=== PATIENT | female | born 1980 | race Caucasian/White ===

== ENCOUNTER 2023-05-30 22:00 | Emergency (ER) | payer BC, SELFPAY ==
[2023-05-30 22:19] VITALS: BP 133/84; PULSE 102; RESP 20; TEMP 37.4; O2SAT 98
[2023-05-30 22:22] VITALS: BP 133/84; PULSE 101; RESP 18; O2SAT 100
--- NOTE | 2023-05-30 22:24 | ED.GENADUL_ITS ---
HPI General Stated Complaint: SOB Mode of arrival: ambulatory. TY: 4 Date/Time Provider Initiated Documentation: 05/30/23 22:01. Limitations to Documentation: no limitations. Information obtained by: patient, RN notes reviewed and old records reviewed. HPI Narrative: 43 year old female presents to the ED with cc of sore throat, fever, HUTTON and cough x 3 days. She was seen by PCP today and had negative Flu, Covid and strep swabs. She reports feeling worse. She does endorse vaping, denies illicit drugs or alcohol. Lungs are clear to auscultation bilaterally, she is speaking in full sentences. On exam she does have 2+ tonsils bilaterally with erythema and exudate. Related Data Home Medications Medication Instructions Recorded Confirmed albuterol 90 mcg/actuation aerosol mcg inhalation Q6H PRN 05/03/22 06/06/22 inhaler coenzyme Q10 10 mg capsule 20 mg PO DAILY 05/03/22 06/06/22 cyanocobalamin (B12)-cobamamide tab sublingual 05/03/22 06/06/22 5,000 mcg-100 mcg sublingual tablet esomeprazole magnesium 20 mg 20 mg PO DAILY 05/03/22 06/06/22 tablet,delayed release (Nexium 24HR) rosuvastatin 20 mg tablet 20 mg PO DAILY 05/03/22 06/06/22 amoxicillin 875 mg-potassium 1 tab PO BID URI 10 days #20 tabs 05/30/23 clavulanate 125 mg tablet Previous Rx's Medication Instructions Recorded amoxicillin 875 mg-potassium 1 tab PO BID URI 10 days #20 tabs 05/30/23 clavulanate 125 mg tablet Allergies Allergy/AdvReac Type Severity Reaction Status Date / Time latex Allergy Skin Rash Verified 06/06/22 09:53 Review of Systems All systems reviewed & are unremarkable except as noted in HPI and below Constitutional Constitutional: Reports fever(s), Reports headache(s) and Reports night sweats ENT Ears, Nose, Mouth, and Throat: Reports as per HPI, Reports dizziness, Reports otalgia, Reports headache(s) and Reports sore throat Cardiovascular Cardiovascular: Denies dyspnea Respiratory Respiratory: Reports cough and Denies dyspnea Gastrointestinal Gastrointestinal: Denies diarrhea, Denies nausea and Denies vomiting Neurologic Neurologic: Reports dizziness and Reports headache(s) [facility] All Active Problems (Updated 05/30/23 @ 23:15 by Afshan Mosquera NP) URI (upper respiratory infection) (Acute) Hyperlipidemia, mixed (Acute) Referred otalgia of both ears (Acute) Chronic pharyngitis (Acute) Postnasal drip (Acute) Medical History Herpes simplex Sacroiliac joint pain Degenerative disc disease, lumbar Spondylosis of lumbar spine Family history of premature coronary artery disease B12 deficiency Irritable bowel syndrome with predominant constipation Acid reflux Asthma, intermittent Acne vulgaris Tongue swelling Wrist pain, left Tonsillitis Family History Mother Hypercholesterolemia Cirrhosis Maternal Grandfather Hypercholesterolemia Maternal Grandmother Cancer Stomach cancer Maternal Uncle Hypercholesterolemia Paternal Uncle FH: prostate cancer Father Myocardial infarction Sister Bipolar 1 disorder Anxiety Hypercholesterolemia Social History Smoking/Tobacco Use Status: Former Tobacco Use Quit Date: 05/27/15 Smoking risk assessment performed?: Yes Alcohol Intake: former Year quit: 2020 Drug use: Never Do you feel safe at home: Yes Do you feel safe in your relationship?: Yes Exam HENMT Head: normal to inspection Ears: TM's normal bilaterally Throat: abnormal tonsil bilaterally erythema, exudates and hypertrophy 2+ and posterior oropharynx abnormal erythema and exudates Course Vital Signs Vital signs: Vital Signs Temperature 37.4 C 05/30/23 22:19 Pulse 102 H 05/30/23 22:19 Respiratory Rate 20 05/30/23 22:19 Blood Pressure 133/84 05/30/23 22:19 Pulse Oximetry 98 05/30/23 22:19 Temperature 37.4 C 05/30/23 22:19 Temperature Source Oral 05/30/23 22:19 Pulse 101 H 05/30/23 22:22 Respiratory Rate 18 05/30/23 22:22 Respiratory Effort Normal 05/30/23 22:22 Respiratory Depth Normal 05/30/23 22:22 Respiratory Pattern Normal 05/30/23 22:22 Blood Pressure 133/84 05/30/23 22:22 Pulse Oximetry 100 05/30/23 22:22 Oxygen Delivery Method Room Air 05/30/23 22:22 Oxygen Flow Rate 0 05/30/23 22:19 Pain Level 0 05/30/23 22:22 Medical Decision Making 43 year old female presents to the ED with cc of sore throat, fever, HUTTON and cough x 3 days. She was seen by PCP today and had negative Flu, Covid and strep swabs. She reports feeling worse. She does endorse vaping, denies illicit drugs or alcohol. Lungs are clear to auscultation bilaterally, she is speaking in full sentences. On exam she does have 2+ tonsils bilaterally with erythema and exudate. Will re-swab due to symptoms, will treat empirically with Augmentin for possible strep pharyngitis and sinusitis. 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 Strep negative. This text was generated using [employer] dictation system, please disregard any oddities of phrase or misspellings. Quality:SDOH Health Related Social Needs: No Data to Display Discharge Plan Disposition Patient Disposition: Home Condition: Stable Discharge Details Clinical Impression: URI (upper respiratory infection) Primary Care Provider: Keara Cueva ED Provider: Afshan Mosquera Home Meds and New Rx's Prescriptions: New amoxicillin-pot clavulanate 875-125 mg tablet 1 tab PO BID 10 Days Qty: 20 0RF Rx Instructions: Take one tablet twice daily for ten days as directed. No Action rosuvastatin 20 mg tablet 20 mg PO DAILY albuterol 90 mcg/actuation aerosol inhalation Q6H PRN cyanocobalamin-cobamamide 5,000-100 mcg tablet, sublingual sublingual coenzyme Q10 10 mg capsule 20 mg PO DAILY esomeprazole magnesium [Nexium 24HR] 20 mg tablet,delayed release (DR/EC) 20 mg PO DAILY Discharge Instructions Instructions: Upper Respiratory Infection (ED) Additional Instructions: Gargle with warm salt water 2-3 times a day. Take Tylenol and Ibuprofen every 4- 6 hours as needed for fever and pain. Follow up with PCP in 5-7 days as needed. Increase oral fluids. Take the antibiotic with yogurt or a probiotic daily. Referrals: Keara Cueva [Primary Care Provider] - 2 weeks Discharge Data Discharge Date/Time-TO BE ENTERED AT DEPARTURE: 05/30/23 23:43
[2023-05-30] MEDS: Amox. 875/Clav. 125, 2 TABS/BTL 1 TAB PO (23:32)
[2023-05-30] MEDS: Amoxicillin 875/Clav. 125 TAB PO (23:32)
[2023-05-30 23:36] VITALS: PULSE 60; RESP 18; O2SAT 100
[2023-05-30 23:40] LABS: COVID-19 PCR Negative (Negative); Influenza A PCR Negative (Negative); Influenza B PCR Negative (Negative); RSV PCR Negative (Negative)
[2023-05-30 23:41] LABS: Source Nasopharynx
== END 2023-05-30 23:43 | disposition home or self-care (01) ==
PROVIDERS: Emergency Provider Registered Nurse Emergency; PCP Nurse Practitioner Family
DX: J06.9 Acute upper respiratory infection, unspecified (principal); R06.02 Shortness of breath; R05.1 Acute cough
CPT/HCPCS: 87637; 87880; 99283

== ENCOUNTER 2023-06-05 14:39 | Outpatient (CLI) | payer BC, SELFPAY ==
--- NOTE | 2023-06-05 09:25 | DI.RAD_ITS ---
Exam(s) XR SHOULDER RT COMPLETE 2+V EXAM: XR SHOULDER RT COMPLETE 2+V CLINICAL HISTORY: RIGHT SHOULDER PAIN. TECHNIQUE: 2D digital imaging was performed of the right shoulder. Two images were obtained. Grash ey and axillary views were obtained. COMPARISON: No exams were available for comparison FINDINGS: BONES: No acute fracture is present. No bony destructive lesion is seen. JOINTS: No dislocation present. The acromioclavicular and glenohumeral joints are well maintained. SOFT TISSUE: The visualized lungs are clear. IMPRESSION: Unremarkable radiographs of the right shoulder. DATA REPOSITORY: RADIATION DOSE DELIVERED:
== END 2023-06-05 14:40 | disposition home or self-care (01) ==
LOC: DIORS 14:41
PROVIDERS: PCP Nurse Practitioner Family; Visit Provider Student in an Organized Health Care Education/Training Program
DX: M25.511 Pain in right shoulder (principal)
CPT/HCPCS: 73030

== ENCOUNTER → 2023-07-03 01:13 | Outpatient (CLI) | payer BC, SELFPAY ==
--- NOTE | 2023-07-03 06:45 | DI.MRI_ITS ---
Exam(s) MR UPPER JOINT RT WO EXAM: MR UPPER JOINT RT WO CLINICAL HISTORY: R SHOULDER PAIN,superior labrum slap tear,S43.431a TECHNIQUE: Multiplanar multisequence MRI of the shoulder was performed. COMPARISON: CR XR SHOULDER RT COMPLETE 2+V from 06/05/2023 FINDINGS: MARROW:There is no evidence of fracture, Hill-Sachs deformity, nor ominous osseous lesions. GLENOHUMERAL JOINT: Mild amount of increased joint which is in the with the subacromial space (see be low). No obvious degenerative changes in the glenohumeral joint. No cartilage loss nor degenerative subarticular cysts and no osteophytes evident. No evidence of capsular tear. The inferior glenohum eral ligament is intact. ROTATOR CUFF MECHANISM: AC JOINT/ACROMIUM: AC joint appears unremarkable without significant degenerative change. The chromi um is not downsloping.. There is no evidence of os acromiale. Supraspinatus: There is a full-thickness supraspinatus tear just above the greater tuberosity. AP me asurement of the tear is 1 cm. Width of the tear is also 1 cm. There is no prominent retraction of the musculotendinous junction and there is no muscle atrophy. There is significant mount of fluid in the subacromial-subdeltoid bursa. Infraspinatus: There is partial thickness tearing along the articular surface side. No muscle atroph y Teres Minor: Intact. No evidence of tear nor muscle atrophy. Subscapularis/anterior cuff: Intact. No abnormal signal at the level of the multipennate insertional fibers. No significant tear nor atrophy. BICEPS TENDON: Exhibits normal position within the intertubercular groove. No evidence of tear. LABRUM: Superior labrum appears intact. Posterior labrum appears intact. Is some tearing at the ant erior superior aspect of the labrum. Inferior aspect of the anterior labrum is intact as is the infe rior labrum. There is no abnormal intraosseous signal in the anterior osseous glenoid to suggest Bankart lesion. QUADRILATERAL SPACE: No evidence of mass in the region of the axillary nerve and dorsal circumflex hu meral vessels. Visualized triceps muscle at this level appears unremarkable. IMPRESSION: 1. There is a full-thickness tear of the supraspinatus rotator cuff tendon just above the greater tub erosity as described above with continuity of fluid from the joint into the subacromial-subdeltoid bu rsa. There is also partial-thickness articular surface tear of the infraspinatus tendon. Anterior c uff supraspinatus appears intact. There is no muscle atrophy. 2. Biceps tendon is intact. There is mild tearing of the anterosuperior labrum. No evidence of para labral cyst. 3. There are no degenerative changes in the glenohumeral and AC joints. DATA REPOSITORY:
== END ==
PROVIDERS: PCP Nurse Practitioner Family; Visit Provider Student in an Organized Health Care Education/Training Program
DX: S43.431D Superior glenoid labrum lesion of right shoulder, subsequent encounter (principal); X58.XXXD Exposure to other specified factors, subsequent encounter
CPT/HCPCS: 73221

== ENCOUNTER 2023-09-20 08:38 | Day surgery (SDC) | payer OTHER, SELFPAY ==
[2023-09-20] VITALS (12 sets, daily range): BP systolic 93–119; BP diastolic 52–79; PULSE 60–101; RESP 14–19; TEMP 36.4–36.7; O2SAT 96–100; BMI 28.4
--- NOTE | 2023-09-20 07:15 | W.PM.DSUDISC ---
Date of service: 09/20/23 Time of Service: 14:00 Discharge Plan Disposition Patient Disposition: Home Condition: Stable Discharge Details Attending Provider: Rodríguez Mariscal Primary Care Provider: Keara Cueva Home Meds and New Rx's Prescriptions: New aspirin 81 mg capsule 81 mg PO DAILY 7 Days Qty: 7 0RF naproxen 250 mg tablet 250 - 500 mg PO BID PRN (Reason: moderate pain and swelling) Qty: 40 0RF oxycodone 5 mg tablet 5 - 10 mg PO .q4-6h PRN (Reason: severe pain) Qty: 18 0RF Continued rosuvastatin 20 mg tablet 20 mg PO DAILY albuterol 90 mcg/actuation aerosol 90 mcg inhalation Q6H PRN cyanocobalamin-cobamamide 5,000-100 mcg tablet, sublingual 1 tab sublingual DIRECTED coenzyme Q10 10 mg capsule 20 mg PO DAILY esomeprazole magnesium [Nexium 24HR] 20 mg tablet,delayed release (DR/EC) 20 mg PO DAILY Discharge Instructions Additional Instructions: Surgery: Right shoulder arthroscopy with rotator cuff repair (supraspinatus), extensive debridement, and subacromial decompression. Activity: For 6 weeks, you should keep your arm at your side in a neutral position at all times except for physical therapy. Do not try to lift or raise your arm using your own muscles. You should use the sling whenever you are out of the house. You may have to adjust the abduction pillow or remove it for comfort. At home it is best to remove the sling and rest the arm on a pillow at your side or support the operative side with your other hand. You may allow the arm to dangle at your side. A physical therapy prescription will be sent electronically to begin in about 3 weeks. Prescriptions: Aspirin 81 mg take 1 daily to prevent a blood clot for 7 days, starting tomorrow morning Naproxen 250 mg take 1-2 every 12 hours with a meal as needed for moderate pain Oxycodone 5 mg take 1-2 every 4-6 hours as needed for severe pain You may use [id number] Tylenol (acetaminophen) as needed for mild pain. These pain medications may be taken all at once or in different combinations as needed. Also, recommend Colace (docusate) as a stool softener as surgery and pain medicine cause constipation. You may try [id number]-[id number] diphenhydramine (Benadryl) 25-50 mg nightly as a sleep aid Dressings: Remove shoulder bandage after 3 days. Leave the sticky Steri-Strips in place until they fall off or remove them after you shower. Cover the incisions with Band-Aids or leave them open to air. You may shower after 5 days. Follow-up: 10-[address] Mariscal You may take off the leg compression stockings this evening at home. You may also leave them on a few days longer if you have a history of leg swelling or edema. Let us know right away if you develop any redness, drainage, fevers, chest pain, or trouble breathing. Do not drink alcohol or drive for at least 24 hours after anesthesia. Please call the office during business hours with any questions or concerns. Discharge Orders Discharge Orders: Discharge Order (Routine); Ordered 09/20/23 Ordered By: Peace Judd DS: Diagnosis Discharge Diagnosis (1) Traumatic tear of right rotator cuff: Status: Acute
--- NOTE | 2023-09-20 07:16 | ROE_ITS ---
"Date of service: 09/20/23 Time of Service: 11:30 Operative Note Operative Note DATE OF PROCEDURE: 09/20/23 PRE-OP DIAGNOSIS: Right: 1. Rotator cuff tear 2. Impingement POST-OP DIAGNOSIS: same PROCEDURE: Right: 1. Rotator cuff repair, CPT# 85186. This involved repair of the supraspinatus using anchors and sutures to reattach the rotator cuff back to the footprint of the greater tuberosity. 2. Extensive debridement, CPT# 37257. This involved using arthroscopic hand instruments, power instruments, and radiofrequency instruments to debride superior synovitis, minor posterior labrum fraying, MGHL capsulitis, and mild central glenoid chondromalacia working within the humeral joint anteriorly superiorly and posteriorly. 3. Subacromial decompression with partial acromioplasty, CPT# 26003. This involved using arthroscopic power instruments and a radiofrequency wand to complete a bursectomy and smooth the undersurface of the acromion. The assistant farm operations manager was medically required in order to help assist in techniques above, which require positioning the arm, holding the arthroscope, and manipulating multiple instruments and sutures at the same time. This cannot be done without the help of an experienced assistant farm operations manager. SURGEON: Rodríguez Mariscal INSTRUMENT MAN: Peace Judd ANESTHESIA TYPE: Local By Surgeon, General LMA/ETT and Primary Nerve Block Refer to Anesthesia Record ESTIMATED BLOOD LOSS: 5 PATHOLOGY: none sent COMPLICATIONS: None Patient was transported to: PACU Patient's condition: stable Implants: Arthrex: 4.75mm SwiveLocks x 2 Indications: The patient was diagnosed with the above conditions and appropriately indicated for surgical intervention. Please see complete medical record for details. Findings: Exam under anesthesia: Full range of motion, no instability Glenohumeral joint: Moderate superior capsulitis, intact superior labrum, intact intra-articular biceps. Moderate rotator interval and [facility] synovitis. Mild limited central glenoid chondromalacia. Mild posterior labrum fraying. Intact subscapularis. Intact supraspinatus although extremely thin nearly visible into the subacromial space. Subacromial space: Mild bursitis, mild lateral downsloping impinging acromion. Near?full-thickness small supraspinatus rotator cuff tear that was somewhat longitudinal over the footprint, delaminated posteriorly extension toward the infraspinatus and delaminated at the intact thin medial articular remnant. Good tendon and bone quality. Procedure Description: In the operating room, general anesthesia was induced. Bilateral shoulders were examined. The patient was positioned in the beachchair position. All bony prominences were well-padded. Preoperative antibiotics were administered. The shoulder was prepped and draped in the usual sterile fashion. The correct patient, procedure, and side of the procedure were all verified prior to incision. Starting through the posterior portal a standard complete diagnostic arthroscopy was performed of the glenohumeral joint including inspection of the long head of the biceps, anterior and superior labrum, subscapularis tendon, supraspinatus and infraspinatus tendons, and axillary recess. The glenoid and humeral head cartilage as well as the posterior labrum were inspected from an anterior viewing portal. Significant findings and interventions noted above as part of the glenohumeral debridement. Starting through the posterior portal, the arthroscope was directed into the subacromial space. A lateral 50 yard line lateral portal was created. A combination of power instruments and a radiofrequency ablator were used to debride bursitis anteriorly, posteriorly, and laterally as well as expose and smooth bone spurring on the undersurface of the acromion. The coracoacromial ligament was partially released. The bursectomy was completed viewing laterally and working from posteriorly and the rotator cuff was thoroughly inspected with findings noted above. Given the young age and the both transverse delaminated medially and posteriorly and longitudinal more centrally over the tuberosity supraspinatus defect, decision was made to proceed with a modified type repair incorporating the different parts of the tear and preserving intact healthy tendon. The central part of the greater tuberosity on the defect was prepared lightly decorticated and abraded to optimize bone and tendon healing. While probing the tear medially the thin veil of intact articular tendon was released while preserving tendon length. There was good reduction and closure of the gap using the cuff g rasper with the arm in slight external rotation. A single central medial row 4.75 mm double loaded bio composite SwiveLock anchor was placed through the ASL portal loaded with 2 pairs of suture tape. Each of the 4 suture tails was then shuttled through all layers of the rotator cuff using the [employer] suture passer, well spanning the tendon from posterior through central to anterior. The sliding repair sutures were then shuttled through the anterior and posterior margin of the tear just medial and lateral to the anchor to close the [id number] defect. These were secured with [facility] arthroscopic knots. Each of the 4 tails of suture tape was then brought out the lateral Reena cannula, laying nicely over the knotted repair sutures, and the rigid clear insert used to confirm best reduction orientation and tension to a single lateral row 4.75 mm double loaded anchor, which was punched and placed with excellent fixation strength. There was slight redundant tissue most posteriorly and one of the sliding repair sutures was shuttled through this tissue and secured with a simple repair stitch and [facility] arthroscopic knot. The repair was inspected with good closure of defect and stable fixation through range of motion. The shoulder was drained of arthroscopic fluid. All portal sites were copiously irrigated. These incisions were closed using 3-0 Monocryl in a buried fashion and then covered with Mastisol, Steri-Strips, Xeroform, dry gauze, and ABDs. The dressings were covered and secured with Medipore tape. The operative extremity was placed into a sling for immobilization. The patient awoke from anesthesia without complication and was transferred to the recovery room in a stable condition."
[2023-09-20] MEDS: Lactated Ringers 1,000 ML 30 ML IV (09:43)
--- NOTE | 2023-09-20 09:58 | W.ANESPRE ---
General Info Date of Service Date Performed: 09/20/23 Height: 5 ft Weight: 66 kg Body Mass Index (BMI): 28.4 Surgical Procedure: Operation Date: 09/20/23 10:40 Proposed Procedure Side Surgeon p Shoulder Rotator Cuff Arthroscopic w/Extensive Debridement, Possible Biceps Tenodesis, Subacromial Decompression Right Rodríguez Mariscal MD Actual Procedure Side Surgeon p Shoulder Rotator Cuff Arthroscopic w/Extensive Debridement, Possible Biceps Tenodesis, Subacromial Decompression Right Rodríguez Mariscal MD Pre-Op Diagnosis Post-Op Diagnosis (1) Traumatic tear of right rotator cuff (2) Impingement syndrome of right shoulder Meds Allergies and Home Medications Allergies Allergy/AdvReac Type Severity Reaction Status Date / Time latex Allergy Skin Rash Verified 09/20/23 09:17 Home Medication Medication Instructions Recorded albuterol 90 mcg/actuation aerosol 90 mcg inhalation Q6H PRN 05/03/22 inhaler coenzyme Q10 10 mg capsule 20 mg PO DAILY 05/03/22 cyanocobalamin (B12)-cobamamide 1 tab sublingual DIRECTED 05/03/22 5,000 mcg-100 mcg sublingual tablet esomeprazole magnesium 20 mg 20 mg PO DAILY 05/03/22 tablet,delayed release (Nexium 24HR) rosuvastatin 20 mg tablet 20 mg PO DAILY 05/03/22 aspirin 81 mg capsule 81 mg PO DAILY prevent blood clot 09/20/23 7 days #7 caps naproxen 250 mg tablet 250 - 500 mg (1 - 2 x 250 mg) PO 09/20/23 BID PRN moderate pain and swelling #40 tabs oxycodone 5 mg tablet 5 - 10 mg (1 - 2 x 5 mg) PO .q4-6h 09/20/23 PRN severe pain #18 tabs Current Visit Medications: Current Medications Generic Name Dose Route Start Last Admin Trade Name Freq PRN Reason Stop Dose Admin Droperidol 0.625 mg 09/20/23 08:14 Droperidol 5 Mg/2 Ml Vial IVP 10/20/23 08:13 DIRECTED PRN Nausea Ephedrine Sulfate 0 mg 09/20/23 08:14 Ephedrine 25 Mg/5 Ml Syringe IVP 10/20/23 08:13 DIRECTED PRN Fentanyl 0 mcg 09/20/23 08:14 Fentanyl 100 Mcg/2 Ml Vial IVP 10/20/23 08:13 DIRECTED PRN Hydromorphone HCl 0 mg 09/20/23 08:14 Hydromorphone 2 Mg/Ml Syr IVP 10/20/23 08:13 DIRECTED PRN Ringer's Solution 1,000 mls @ 30 mls/hr 09/20/23 06:00 09/20/23 09:43 IV 09/20/23 23:59 30 mls/hr INFUSION MERLIN Administration Cefazolin Sodium/Dextrose 2 gm in 50 mls @ 100 mls/hr 09/20/23 06:00 Ancef Duplex IVPB 09/20/23 23:59 PREOP MERLIN IV Miscellaneous Supplies 1 each 09/20/23 06:00 Iv Access IV 09/20/23 23:59 DIRECTED MERLIN Naloxone HCl 0 mg 09/20/23 08:14 Naloxone 0.4 Mg/Ml Vial IVP 10/20/23 08:13 PRN PRN Oxycodone HCl 0 mg 09/20/23 07:15 Oxycodone 5 Mg Tab PO 10/20/23 07:14 Q3H PRN PRN Pain Sodium Chloride 0 ml 09/20/23 06:00 Normal Saline Flush 10 Ml Syr IV 09/20/23 23:59 PRN PRN Sodium Chloride 0 ml 09/20/23 06:00 Normal Saline 10 Ml Vial IJ 09/20/23 23:59 DIRECTED PRN Sterile Water 0 ml 09/20/23 06:00 Water,Injection,Sterile 10 Ml Vial IJ 09/20/23 23:59 DIRECTED PRN PFSH Active Problems Active Problems: Problem Status Onset Code Impingement syndrome of right shoulder M75.41 Traumatic tear of right rotator cuff ~02/2023 S46.011A Hyperlipidemia, mixed E78.2 Referred otalgia of both ears H92.03 Chronic pharyngitis J31.2 Postnasal drip R09.82 Medical History Medical History Herpes simplex Sacroiliac joint pain Degenerative disc disease, lumbar Spondylosis of lumbar spine Family history of premature coronary artery disease B12 deficiency Irritable bowel syndrome with predominant constipation Acid reflux Asthma, intermittent Acne vulgaris Tongue swelling Wrist pain, left Tonsillitis Tobacco Smoking/Tobacco Use Status: Former Tobacco Use Alcohol Alcohol Intake: former Year quit: 2020 Substance Use Substance use: Never Substance use type: does not use Details: Pt vapes tobacco daily. Vital Signs and Lab Results Vital Signs Most Recent Vital Signs in EMR: Most Recent Vital Signs Temp Pulse Resp BP Pulse Ox 36.6 C 71 18 116/67 100 09/20/23 09:30 09/20/23 09:30 09/20/23 09:30 09/20/23 09:30 09/20/23 09:30 Point of Care Results Point of Care Results: POC- Test(urine) Negative 09/20/23 09:15 Lab Results Blood Type / Crossmatch: No Data to Display Complete Blood Count: No Data to Display Complete Metabolic Panel: No Data to Display Liver Function Panel: No Data to Display Coagulation Panel: No Data to Display Cardiac Panel: No Data to Display Arterial Blood Gas: No Data to Display Venous Blood Gas: No Data to Display Pancreas Panel: No Data to Display Thyroid Panel: No Data to Display Infectious Disease: No Data to Display Blood Cultures: No Data to Display Toxicology Panel: No Data to Display Panel: No Data to Display Anesthesia Assessment and Plan Anesthesia History Personal History: No History of Anesthesia Complications Family History: No Family History of Anesthesia Complications Exercise Tolerance Exercise Tolerance: Metabolic Equivalents>4 Pertinent Negatives Pertinent Negatives: No Symptoms of GERD Cardiac & Pulmonary Exam Cardiac Exam: Normal S1/S2 Heart Sounds Pulmonary Exam: Clear Bilateral Breath Sounds Implantable Cardiac Device Does patient have a Pacemaker or an ICD?: No Airway Exam Known Difficult Airway: No Mallampati Class: 1 Mouth Opening: Normal (> 3cm) Thyromental Distance: Greater than 3 cm Neck Range of Motion: Full ROM Neck Circumference: Normal Teeth Condition: Normal Dentition ASA Classification ASA Score: ASA 2 Emergency Case?: No NPO Status NPO Status: NPO Clears >2 hours, Solids >8 hours Status Status: Not Relevant due to Medical History Anesthesia Plan Resuscitation Status: Full Code Anesthesia Technique: General Anesthesia Airway Planned: Endotracheal Tube Pain Management: Surgeon and patient request nerve block Monitors Used: Standard Monitors
[2023-09-20] MEDS: ceFAZolin 2 GM/50 ML BAG IVPB (11:34)
[2023-09-20] MEDS: TRANEXAMIC ACID/SOD. CHL. 1,000 MG/100 ML BAG 600 MG IVPB (11:50)
[2023-09-20] MEDS: Bupivacaine 0.25% Pres-Free W/EPI 30 ML VIAL (12:07)
--- NOTE | 2023-09-20 12:13 | W.ANESNERVE ---
Nerve Block Single Injection Procedure Date and Time Date Performed: 09/20/23 Procedure Start: 11:08 Location Where Procedure Performed Procedure Location: Day Surgery Unit Reason Performed: Postoperative Analgesia Requesting Provider: Rodríguez Mariscal Timeout Performed Timeout Performed: Yes Monitoring Used ECG, Blood Pressure and See EMR for corresponding vital signs Sterility Sterility: Hand Hygiene, Surgical Cap, Surgical Mask, Sterile Gloves, Eye Protection and Chlorhexidine Sedation Given During Procedure Sedation Given (Indicate Dose Given): Versed IV Dose:: 3mg IVP Patient Mental Status Patient Mental Status: Sedate with meaningful communication Nerve Block 1st Nerve Block: Laterality: Right Block Type: Interscalene Ultrasound Image Saved?: Yes Needle / Catheter Used: 80mm SonoPlex II Local Anesthetic Bolus (Indicate Dose Given): Lidocaine used for local infiltration of skin, Bupivacaine 0.5% Dose:: 0.5%/10cc (50mg) and Exparel Dose:: 1.33%/10cc (133mg) Additives (Indicate Dose Given): Epinephrine to make 1:200,000 (5mcg/ml) Dose:: 100mcg/20cc and Decadron Dose:: 10mg PF Ultrasound: Sterile probe cover and gel used Nerve Stimulator: Not Used Paresthesia: None Procedure Tolerated: No Complications and Patient tolerated well Procedure Outcome: Successful Performed By: Quan Avila
[2023-09-20] MEDS: EPINEPHrine 10 MG/10 ML ML (13:41)
--- NOTE | 2023-09-20 14:51 | W.ANESPOSTOP ---
Postoperative Evaluation Date, Time and Location Date Performed: 09/20/23 Time Performed: 14:51 Patient Location: Day Surgery Unit Vital Signs Most Recent Imported Vital Signs: Most Recent Vital Signs Temp Pulse Resp BP Pulse Ox 36.4 C L 67 15 109/60 100 09/20/23 14:40 09/20/23 14:40 09/20/23 14:40 09/20/23 14:40 09/20/23 14:40 Pain Score Most Recent Pain Score: Most Recent Pain Score Pain Level 0 09/20/23 14:40 Assessment Mental Status: Awake (Alert & Oriented to Patient Baseline) Airway and Respiratory Function: Patent airway with normal (patient baseline) respiratory exam Cardiovascular Function: Hemodynamically Stable Hydration Status: Adequately Hydrated Nausea & Vomiting: No Nausea or Vomiting Pain: Pt. Denies Any Pain Peripheral Nerve Block: Regional nerve block not resolved at time of post operative discharge
== END 2023-09-20 16:10 | disposition home or self-care (01) ==
LOC: SUR 08:39
PROVIDERS: PCP Nurse Practitioner Family; Visit Provider Student in an Organized Health Care Education/Training Program
PROC: (CPT 29827; principal; 2023-09-20 10:30)
DX: S46.011A Strain of muscle(s) and tendon(s) of the rotator cuff of right shoulder, initial encounter (principal); M75.41 Impingement syndrome of right shoulder; X50.0XXA Overexertion from strenuous movement or load, initial encounter
CPT/HCPCS: 29827; 29823; 29826; 76942; 81025; C9290; J0131; J0171; J0665; J0690; J1100; J1885; J2001; J2250; J2371; J2405; J2704

== ENCOUNTER 2024-03-09 01:26 | Outpatient (CLI) | payer OTHER, SELFPAY ==
--- NOTE | 2024-03-09 06:30 | DI.MRI_ITS ---
Exam(s) MR UPPER JOINT RT WO EXAM: MR UPPER JOINT RT WO CLINICAL HISTORY: ? biceps injury,traumatic tear rt rotator cuff,s46.011a. TECHNIQUE: Multiplanar multisequence MRI was performed. COMPARISON: MR MR UPPER JOINT RT WO from 07/03/2023 FINDINGS: There has been interval rotator cuff repair. BONES: There is no fracture or contusion pattern. JOINTS: The acromioclavicular joint is normal. The glenohumeral joint is normal. TENDONS: Supraspinatus: There is tendinosis of the biceps tendon. No evidence of a full-thickness tear. Infraspinatus: The infraspinatus tendon is intact. No evidence of a full-thickness tear. Subscapularis: Unremarkable. Teres Minor: Unremarkable. Biceps and [place]: There is tendinosis seen in the biceps tendon. The biceps tendon is normally loca robert within the biceps groove. A normal biceps anchor is seen. MUSCLES: Unremarkable. No significant muscle atrophy is seen. GLENOID LABRUM: There does appear to be some degeneration seen in the posterior superior labrum. The labrum is otherwise unchanged compared to the prior examination. SOFT TISSUES: Unremarkable. LIGAMENTS: Unremarkable. OTHER: There is a small amount of fluid seen in the subacromial subdeltoid bursa. IMPRESSION: 1. There does appear to be mild tendinosis of the biceps tendon but the biceps tendon is normally loc ated in the bicipital groove and a normal biceps anchor is seen. 2. Interval rotator cuff repair. No evidence of a full-thickness tear of the rotator cuff tendons. Supraspinatus tendinosis is present. 3. Degeneration seen in the posterior superior labrum. 4. Small amount of fluid in the subacromial subdeltoid bursa. DATA REPOSITORY:
== END 2024-03-09 01:46 ==
LOC: DI 01:29
PROVIDERS: PCP Nurse Practitioner Family; Visit Provider Student in an Organized Health Care Education/Training Program
DX: S46.011A Strain of muscle(s) and tendon(s) of the rotator cuff of right shoulder, initial encounter (principal); X58.XXXA Exposure to other specified factors, initial encounter
CPT/HCPCS: 73221

== ENCOUNTER 2024-07-15 14:55 | Outpatient (CLI) | payer BC, SELFPAY ==
[2024-07-15 14:59] LABS: Abs Immature Grans 0.02 10^3/uL (0.0-0.06); Absolute Basophil Count 0.05 10^3/uL (0.0-0.2); Absolute Eosinophil Count 0.32 10^3/uL (0.0-0.7); Absolute Lymphocyte Count 2.48 10^3/uL (1.2-3.4); Absolute Monocyte Count 0.51 10^3/uL (0.1-0.8); Absolute Neutrophil Count 4.81 10^3/uL (1.2-6.7); Basophils % 0.6 %; ESR 5 mm/hr (0-20); Eosinophils % 3.9 %; HCT 40.1 % (36.0-46.0); HGB 13.1 g/dL (11.2-15.7); Immature Grans % 0.2 %; Lymphocytes % 30.3 %; MCH 28.1 pg (27.0-33.0); MCHC 32.7 % (32.0-36.0); MCV 86 fL (80-95); MPV 8.6 fL (8.0-11.0); Monocytes % 6.2 %; Neutrophils % 58.8 %; Platelet Count 318 10^3/uL (130-400); RBC 4.67 10^6/uL (3.93-5.22); RDW 12.2 % (11.7-14.6); RDW-SD 38.4 fL; WBC 8.19 10^3/uL (4.4-10.8)
[2024-07-15 17:12] LABS: C-Reactive Protein < 0.50 mg/dL (<or=0.5)
== END 2024-07-15 14:56 | disposition home or self-care (01) ==
LOC: LBO 14:55
PROVIDERS: PCP Nurse Practitioner Family; Visit Provider Student in an Organized Health Care Education/Training Program
DX: S46.011A Strain of muscle(s) and tendon(s) of the rotator cuff of right shoulder, initial encounter (principal)
CPT/HCPCS: 36415; 85652; 85025; 86140

== ENCOUNTER 2024-10-09 10:22 | Day surgery (SDC) | payer OTHER, SELFPAY ==
[2024-10-09] VITALS (9 sets, daily range): BP systolic 98–124; BP diastolic 54–83; PULSE 71–96; RESP 14–21; TEMP 36–36.7; O2SAT 97–100; BMI 30.8
--- NOTE | 2024-10-09 07:17 | ROE_ITS ---
Operative Note Operative Note PRE-OP DIAGNOSIS: Right shoulder: 1. Pain after previous supraspinatus rotator cuff repair 2. Stiffness 3. Long head biceps tendinopathy POST-OP DIAGNOSIS: same PROCEDURE: Right shoulder: 1. Revision extensive debridement, CPT# 37511: This involves releasing the anterior capsule and MGHL, debriding anterior superior and posterior synovitis, removing a small amount of permanent suture material and a small portion of the previous medial row supraspinatus repair, revising the subacromial decompression, and obtaining and sending soft tissue and removed permanent material for culture rule out indolent infection. 2. Open biceps tenodesis, CPT# 52281. This involved reattaching the long head of the biceps tendon to the proximal humerus in the sub-pectoral area of the bicipital groove at the correct tension. 3. Manipulation under anesthesia, CPT #83770: This involved guiding the shoulder through motion to restore full forward elevation prior to arthroscopy. The operations administrative assistant was medically required in order to help assist in techniques above, which require positioning the arm, holding the arthroscope, and manipulating multiple instruments and sutures at the same time. This cannot be done without the help of an experienced operations administrative assistant. SURGEON: Rodríguez Mariscal RECYCLING TECHNICIAN: Peace Judd ANESTHESIA TYPE: Local By Surgeon, General LMA/ETT and Primary Nerve Block Refer to Anesthesia Record ESTIMATED BLOOD LOSS: 5 PATHOLOGY: none sent COMPLICATIONS: None Patient was transported to: PACU Patient's condition: stable Implants: Arthrex: Proximal biceps tenodesis button Indications: The patient was diagnosed with the above conditions and appropriately indicated for surgical intervention. Please see complete medical record for details. Findings: Exam under anesthesia: Moderately limited forward elevation and external rotation. No deformity. Well-healed prior arthroscopic portals. Glenohumeral joint: Moderate anterior posterior synovitis. Intact superior labrum and biceps anchor. Partial tearing and fraying moderately at the intra- articular biceps immediately adjacent to the rotator cuff repair. Largely healed and stable supraspinatus repair with mild articular medial row exposure. Stable anterior central humeral head chondromalacia. Diminished axillary space consistent with adhesive capsulitis. Intact subscapularis. Subacromial space: Mild bursitis, previously completed acromioplasty. Intact on inspection and probing bursal supraspinatus repair. Single knotted suture visible within well-healed tissue. Procedure Description: In the operating room, general anesthesia was induced. Bilateral shoulders were examined. The correct patient, procedure, and side of the procedure were all verified prior to beginning. The right shoulder had moderately limited range of motion. Forward elevation was to about 125 degrees and external rotation to about 45 degrees with soft endpoints and pressure increasing to about 135 and 55. The other side showed the high end of motion with forward elevation past 145 degrees and essentially 180 degrees with combined scapular motion and about 90 degrees with the elbow at the side. Using a short lever arm and careful steady pressure, going into forward elevation the mild resistance was stretched and then released readily restoring full forward elevation similar to the other side. External rotation at the side was then about full as well. Abduction and internal rotation were then tested and similar to the contralateral side too. All terminal range endpoints were then reinforced numerous times and shoulder examined. There was no significant mechanical sensation or instability. The patient was then positioned in the beachchair position. All bony prominences were well-padded. Preoperative antibiotics were administered. The shoulder was prepped and draped in the usual sterile fashion. Starting through the previous posterior portal a standard complete diagnostic arthroscopy was performed of the glenohumeral joint including inspection of the long head of the biceps, anterior and superior labrum, subscapularis tendon, supraspinatus and infraspinatus tendons, and axillary recess. The glenoid and humeral head cartilage as well as the posterior labrum were inspected from an anterior viewing portal. Significant findings and interventions noted above as part of the glenohumeral debridement including using arthroscopic scissors to release the anterior capsule [facility] to expose the subscapularis and allow for more appropriate easy external rotation. The prior supraspinous rotator cuff repair single medial row anchor could be visualized under a fairly mckeon layer of articular supraspinatus tissue, but the anchor site had a slight delamination and space between the 4 tails and pairs of suture and the corresponding rotator cuff tissue about the size of the suture anchor and shaver 5 mm in this focal area. There was also a very small corner of the SwiveLock anchor that was visible and not remodeled into bone. The biceps tendon had moderate partial tearing and fraying immediately adjacent to the anterior sutures of the supraspinatus repair. It gave the appearance of being abraded by rotator cuff repair suture although this type of partial tearing is also seen in this area at the superior aspect of bicipital groove from long head bicep tendinopathy. Some strands of the biceps tendon and superior capsule where they were inflamed together may have been incorporated together in an anterior most suture. The sutures were tested with a pituitary rongeur and stable in bone and cuff tissue confirming largely healed repair. Some of the exposed suture was still grasped and sent in a specimen cup #1 for culture rule out indolent cutibacterium acnes infection. The small amount of suture anchor calcium plastic material was also grasped with a pituitary rongeur and send in specimen cup #2. The biceps tendon would later be sent specimen #3. The mechanical shaver was then used to carefully remove and smooth above the suture anchor and undersurface rotator cuff repair at site removing exposed suture while protecting the repair. The biceps tendon was then amputated from the superior labrum is an arthroscopic scissors and did retract appropriately down the bicipital groove the direct arm pressure without being stuck in the anterior part of the rotator cuff repair. The repair was then tested from this articular side with the biceps out of the way and the extra suture removed using a switching stick as a probe and the operations administrative assistant moving the shoulder into various positions and the rotator cuff did not lift off of the footprint nor was there any visible or identifiable radial defect. Joint was then copiously irrigated to ensure thorough irrigation and debridement completed in case there was indolent infection although the patient's pain seems likely be due to postoperative adhesive capsulitis and stiffness as well as proximal biceps tendinopathy with largely healed previously full-thickness supraspinatus repair. The arthroscope was then redirected into the subacromial space and lateral portal reopened as well. Mild bursitis was removed as well as the undersurface of the acromion readily exposed having already had acromioplasty which appeared appropriate. The rotator cuff repair seemed quite mckeon and intact. The rotator cuff tissue appeared healthy without really any partial tea ring fraying or significant injection. A single suture could be seen just poking through the bursal top layer likely corresponding to one of the knotted repair sutures. It was grasped and moderately tested but did not separate from any of the tissue and was left in place as it was largely buried in tissue. Subacromial space was thoroughly irrigated as well for being drained of arthroscopic fluid. Bupivacaine with epinephrine was infiltrated about a medium-sized longitudinal incision at the inferior margin of the pectoralis major localized over the long head of the biceps tendon. Blunt and sharp dissection were used to expose the tendon in the bicipital groove. The tendon was brought out of the wound and kept off the skin on top of a blue towel. The correct location for sub-pectoral fixation was localized, prepped with a rasp, and then drilled with a 3.2 mm drill pin in a unicortical fashion. Using a fiber loop suture the tendon was prepped from the musculotendinous junction a few centimeters proximal. The excess tendon was amputated. The free suture ends were then passed through the unicortical button implant. The drill pin was removed and the implant was placed into the humeral intramedullary canal. The button was flipped and the sutures were tensioned bringing the tendon down to bone. Tension and fixation were then tested and found to be appropriate. The suture tails were brought on either side of the tendon and then tied compressing tendon to bone. The wound was copiously irrigated with normal saline. All portal sites were copiously irrigated. These incisions were closed using 3- 0 Monocryl in a buried fashion. Biceps subcutaneous tissue was closed using 3-0 Monocryl in a buried interrupted fashion. Skin was closed using 3-0 Monocryl in a buried subcuticular running fashion. Skin glue was applied over the incision followed b telfa, gauze, and covered with a Tegaderm dressing. The portals and shoulder were then covered with Mastisol, Steri-Strips, Xeroform, dry gauze, and ABDs. The dressings were covered and secured with Medipore tape. The operative extremity was placed into a sling for immobilization. The patient awoke from anesthesia without complication and was transferred to the recovery room in a stable condition. Date of Procedure: 10/09/24
--- NOTE | 2024-10-09 07:25 | PDOC.DSDIS_ITS ---
Date of service: 10/09/24 Discharge Plan Disposition Patient Disposition: Home Condition: Stable Discharge Details Attending Provider: Rodríguez Mariscal Primary Care Provider: Keara Cueva Home Meds and New Rx's Prescriptions: New naproxen 250 mg tablet 250 - 500 mg PO BID PRN (Reason: moderate pain and swelling) Qty: 40 0RF oxycodone 5 mg tablet 5 - 10 mg PO .q4-6h MDD 30 mg PRN (Reason: severe pain) Qty: 18 0RF Continued rosuvastatin 20 mg tablet 20 mg PO DAILY albuterol 90 mcg/actuation aerosol 90 mcg inhalation Q6H PRN cyanocobalamin-cobamamide 5,000-100 mcg tablet, sublingual 1 tab sublingual DIRECTED coenzyme Q10 10 mg capsule 20 mg PO DAILY esomeprazole magnesium [Nexium 24HR] 20 mg tablet,delayed release (DR/EC) 20 mg PO DAILY Discharge Instructions Additional Instructions: Surgery: Right shoulder arthroscopy with revision extensive debridement (including capsular release and cultures), open biceps tenodesis, and manipulation under anesthesia 10/09/24; Largely healed full-thickness supraspinatus tear with mild articular incomplete healing. Activity: You should gradually increase range of motion and use of your shoulder. You may use your shoulder for all regular activities while protecting biceps repair. Avoid any weighted elbow flexion or resisted supination for 6-8 weeks. No heavy lifting, reaching overhead, or lifting away from body for approximately 2-3 months. You may use the sling whenever you are out of the house for a few weeks. At home it is best to remove the sling and rest the arm on a pillow at your side or support the operative side with your other hand. A physical therapy prescription will be sent to start in about 3 weeks. Prescriptions: Naproxen 250 mg take 1-2 every 12 hours with a meal as needed for moderate pain Oxycodone 5 mg take 1-2 every 4-6 hours as needed for severe pain You may use [id number] Tylenol (acetaminophen) as needed for mild pain. These pain medications may be taken all at once or in different combinations as needed. Also, recommend Colace (docusate) as a stool softener as surgery and pain me dicine cause constipation. You may try [id number] diphenhydramine (Benadryl) 25-50 mg nightly as a sleep aid Dressings: Remove shoulder bandage after 3 days. Leave the sticky Steri-Strips in place until they fall off or remove them after you shower. Cover the incisions with Band-Aids or leave them open to air. The biceps bandage (inside upper arm) is glued on separately. You may leave this one on a few days longer if it is difficult to remove. There is also glue underneath this bandage that can be left in place until it peels off. You may shower after 5 days. Follow-up: 10-[address] Mariscal You may take off the leg compression stockings this evening at home. You may also leave them on a few days longer if you have a history of leg swelling or edema. Let us know right away if you develop any redness, drainage, fevers, chest pain, or trouble breathing. Do not drink alcohol or drive for at least 24 hours after anesthesia. Please call the office during business hours with any questions or concerns. Discharge Orders Discharge Orders: Discharge Order (Routine); Ordered 10/09/24 Ordered By: Peace Judd DS: Diagnosis Discharge Diagnosis (1) Tendonitis of long head of biceps brachii of right shoulder: Status: Acute (2) Adhesive capsulitis of right shoulder: Status: Acute (3) Traumatic tear of right rotator cuff: Status: Acute
--- NOTE | 2024-10-09 10:44 | W.ANESPRE ---
General Info Date of Service Date Performed: 10/09/24 Height: 5 ft Weight: 71.6 kg Body Mass Index (BMI): 30.8 Surgical Procedure: Operation Date: 10/09/24 12:10 Proposed Procedure Side Surgeon p Shoulder Possible Rotator Cuff Arthroscopic w/Revision, Extensive Debridement, Open Biceps Tenodesis, Possible Manipulation Under Anesthesia Right Rodríguez Mariscal MD Pre-Op Diagnosis Post-Op Diagnosis (1) Traumatic tear of right rotator cuff: (2) Tendonitis of long head of biceps brachii of right shoulder: (3) Adhesive capsulitis of right shoulder: Meds Allergies and Home Medications Allergies Allergy/AdvReac Type Severity Reaction Status Date / Time latex Allergy Skin Rash Verified 10/09/24 10:37 Home Medication ?Medication ?Instructions ?Recorded albuterol 90 mcg/actuation aerosol 90 mcg inhalation Q6H PRN 05/03/22 inhaler coenzyme Q10 10 mg capsule 20 mg PO DAILY 05/03/22 cyanocobalamin (B12)-cobamamide 1 tab sublingual DIRECTED 05/03/22 5,000 mcg-100 mcg sublingual tablet esomeprazole magnesium 20 mg 20 mg PO DAILY 05/03/22 tablet,delayed release (Nexium 24HR) rosuvastatin 20 mg tablet 20 mg PO DAILY 05/03/22 Current Visit Medications: Current Medications Generic Name Dose Route Start Last Admin Trade Name Freq PRN Reason Stop Dose Admin Ringer's Solution 1,000 mls @ 30 mls/hr 10/09/24 06:00 IV 11/07/24 23:59 INFUSION MERLIN Cefazolin Sodium/Dextrose 2 gm in 50 mls @ 100 mls/hr 10/09/24 06:00 Ancef Duplex IVPB 11/07/24 23:59 PREOP MERLIN IV Miscellaneous Supplies 1 each 10/09/24 06:00 Iv Access IV 11/07/24 23:59 DIRECTED MERLIN Oxycodone HCl 0 mg 10/09/24 07:25 Oxycodone 5 Mg Tab PO 11/08/24 07:24 Q3H PRN PRN Pain Sodium Chloride 0 ml 10/09/24 06:00 Normal Saline Flush 10 Ml Syr IV 11/07/24 23:59 PRN PRN Sodium Chloride 0 ml 10/09/24 06:00 Normal Saline 10 Ml Vial IJ 11/07/24 23:59 DIRECTED PRN Sterile Water 0 ml 10/09/24 06:00 Water,Injection,Sterile 10 Ml Vial IJ 11/07/24 23:59 DIRECTED PRN PFSH Active Problems Active Problems: Problem Status Onset Code Adhesive capsulitis of right shoulder Acute M75.01 Tendonitis of long head of biceps brachii of right shoulder Acute M75.21 Impingement syndrome of right shoulder Acute M75.41 Traumatic tear of right rotator cuff Acute ~02/2023 S46.011A Referred otalgia of both ears Acute H92.03 Chronic pharyngitis Acute J31.2 Postnasal drip Acute R09.82 Hyperlipidemia, mixed Acute E78.2 Medical History Medical History High cholesterol Herpes simplex Sacroiliac joint pain Degenerative disc disease, lumbar Spondylosis of lumbar spine Family history of premature coronary artery disease B12 deficiency Irritable bowel syndrome with predominant constipation Acid reflux Asthma, intermittent Acne vulgaris Tongue swelling Wrist pain, left Tonsillitis Tobacco Smoking/Tobacco Use Status: Current every day Tobacco Type: e-cigarettes Passive smoking exposure: No Alcohol Alcohol Intake: former Year quit: 2020 Substance Use Substance use: Never Substance use type: does not use Vital Signs and Lab Results Vital Signs Most Recent Vital Signs in EMR: Most Recent Vital Signs Temp 36.3 C L 10/09/24 10:29 Lab Results Blood Type / Crossmatch: No Data to Display Complete Blood Count: No Data to Display Complete Metabolic Panel: No Data to Display Liver Function Panel: No Data to Display Coagulation Panel: No Data to Display Cardiac Panel: No Data to Display Arterial Blood Gas: No Data to Display Venous Blood Gas: No Data to Display Pancreas Panel: No Data to Display Thyroid Panel: No Data to Display Infectious Disease: No Data to Display Blood Cultures: No Data to Display Toxicology Panel: No Data to Display Panel: No Data to Display Anesthesia Assessment and Plan Anesthesia History Personal History: No History of Anesthesia Complications Family History: No Family History of Anesthesia Complications Exercise Tolerance Exercise Tolerance: Metabolic Equivalents>4 Cardiac & Pulmonary Exam Cardiac Exam: Normal S1/S2 Heart Sounds Pulmonary Exam: Clear Bilateral Breath Sounds Implantable Cardiac Device Does patient have a Pacemaker or an ICD?: No Airway Exam Known Difficult Airway: No Mallampati Class: 2 Mouth Opening: Normal (> 3cm) Thyromental Distance: Greater than 3 cm Neck Range of Motion: Full ROM Neck Circumference: Normal Teeth Condition: Normal Dentition ASA Classification ASA Score: ASA 2 Emergency Case?: No NPO Status NPO Status: NPO Clears >2 hours, Solids >8 hours Status Status: Negative HCG Anesthesia Plan Resuscitation Status: Full Code Anesthesia Technique: General Anesthesia Airway Planned: Endotracheal Tube Pain Management: Surgeon and patient request nerve block Monitors Used: Standard Monitors Preoperative Comments:: 44 yo female for shoulder/bicep repair. No major health history change since last time. States that case went very well, her throat was sore for about 2 weeks after. She also liked that fact that she did not recall any of the nerve block events. Sig PMHx: RAD (albuterol), GERD (nexium), lumbar spondylosis, e-cig, former EtOH. Previous Anes: - shoulder, midaz (3 for block 2 for OR), prop/sevo, intermittent phenyl, glide 3 grade 1 masked with OPA. ISB with exparel, 0/10 on post op note.
[2024-10-09] MEDS: Lactated Ringers 1,000 ML 30 ML IV (11:29)
[2024-10-09] MEDS: ceFAZolin 2 GM/50 ML BAG IVPB (12:31)
[2024-10-09] MEDS: Bupivacaine 0.25% Pres-Free W/EPI 30 ML VIAL (12:53)
[2024-10-09] MEDS: EPINEPHrine 10 MG/10 ML ML (14:10)
--- NOTE | 2024-10-09 14:31 | W.ANESNERVE ---
Nerve Block Single Injection Procedure Date and Time Date Performed: 10/09/24 Procedure Start: 12:00 Location Where Procedure Performed Procedure Location: Day Surgery Unit Reason Performed: Postoperative Analgesia Requesting Provider: Rodríguez Mariscal Timeout Performed Timeout Performed: Yes Monitoring Used ECG, Blood Pressure, SpO2 and See EMR for corresponding vital signs Sterility Sterility: Hand Hygiene, Surgical Mask, Sterile Gloves, Eye Protection and Chlorhexidine Sedation Given During Procedure Sedation Given (Indicate Dose Given): Versed IV Dose:: 3 mg Patient Mental Status Patient Mental Status: Sedate with meaningful communication Nerve Block 1st Nerve Block: Laterality: Right Block Type: Interscalene Ultrasound Image Saved?: Yes Needle / Catheter Used: 80mm SonoPlex II Local Anesthetic Bolus (Indicate Dose Given): Lidocaine used for local infiltration of skin, Bupivacaine 0.5% Dose:: 10 ml and Exparel Dose:: 10 ml Additives (Indicate Dose Given): Normal Saline Ultrasound: Sterile probe cover and gel used Nerve Stimulator: Supplement to Ultrasound use and No twitch or parasthesia noted < 0.5 mA (0.6) Paresthesia: None Procedure Tolerated: No Complications and Patient tolerated well Procedure Outcome: Successful Performed By: Harshad Aguila
--- NOTE | 2024-10-09 15:13 | W.ANESPOSTOP ---
Postoperative Evaluation Date, Time and Location Date Performed: 10/09/24 Time Performed: 15:13 Patient Location: Day Surgery Unit Vital Signs Most Recent Imported Vital Signs: Most Recent Vital Signs Temp Pulse Resp BP Pulse Ox 36.7 C 87 16 120/81 97 10/09/24 15:06 10/09/24 15:06 10/09/24 15:06 10/09/24 15:06 10/09/24 15:06 Pain Score Most Recent Pain Score: Most Recent Pain Score Pain Level 0 10/09/24 15:06 Assessment Mental Status: Awake (Alert & Oriented to Patient Baseline) Airway and Respiratory Function: Patent airway with normal (patient baseline) respiratory exam Cardiovascular Function: Hemodynamically Stable Hydration Status: Adequately Hydrated Nausea & Vomiting: No Nausea or Vomiting Pain: Pt. Denies Any Pain Peripheral Nerve Block: Regional nerve block not resolved at time of post operative discharge
== END 2024-10-09 15:43 | disposition home or self-care (01) ==
LOC: SUR 10:23
PROVIDERS: PCP Nurse Practitioner Family; Visit Provider Student in an Organized Health Care Education/Training Program
PROC: (CPT 29827; principal; 2024-10-09 12:00)
DX: M75.21 Bicipital tendinitis, right shoulder (principal); M75.01 Adhesive capsulitis of right shoulder; S46.011A Strain of muscle(s) and tendon(s) of the rotator cuff of right shoulder, initial encounter; X58.XXXA Exposure to other specified factors, initial encounter
CPT/HCPCS: 23430; 29823; 64415; 81025; 87070; 87075; 87205; J0665; J0666; J0690; J1100; J1885; J2003; J2250; J2405; J2704

== ENCOUNTER 2025-02-05 10:49 | Outpatient (CLI) | payer BC, SELFPAY ==
--- NOTE | 2025-02-05 08:00 | DI.RAD_ITS ---
Exam(s) XR HIP LT COMPLETE AP PELVIS EXAM: XR HIP LT COMPLETE AP PELVIS CLINICAL HISTORY: LEFT HIP PAIN. TECHNIQUE: 2D digital imaging was performed. COMPARISON: No exams were available for comparison FINDINGS: 3 views No evidence of pelvic nor hip fracture. No hip joint space narrowing. No obvious GUNNER. No evidence of vascular necrosis. Bone density normal. No osseous lesions. IMPRESSION: No significant osseous findings in the pelvis and hips. DATA REPOSITORY: RADIATION DOSE DELIVERED:
== END 2025-02-05 10:50 | disposition home or self-care (01) ==
LOC: DIORS 10:49
PROVIDERS: PCP Nurse Practitioner Family; Visit Provider Physician Assistant
DX: M25.552 Pain in left hip (principal)
CPT/HCPCS: 73502